=== PATIENT | male | born 1990 | race Two or more races ===

== ENCOUNTER 2023-08-21 11:37 | Emergency (ER) | payer MEDICAID ==
[~2023-08-21] VITALS: Ht 167.6 cm; Wt 64.2 kg
[2023-08-21 12:39] VITALS: BP 126/67; PULSE 52; RESP 18; TEMP 98.6; O2SAT 98
[2023-08-21] MEDS ORDERED: BENZ9GEL TOP (13:49)
[2023-08-21] MEDS ORDERED: AMOX-580 PO (13:49)
== END 2023-08-21 14:12 | disposition home or self-care (01) ==
LOC: ER 11:38
DX: K08.89 Other specified disorders of teeth and supporting structures (principal)
CPT/HCPCS: 99283